=== PATIENT | female | born 1995 | race Caucasian/White ===

== ENCOUNTER 2021-06-12 08:54 | Emergency (ER) | payer SELFPAY ==
[~2021-06-12] VITALS: Ht 160 cm; Wt 121.9 kg
[2021-06-12] MEDS ORDERED: IV RINGERS,LACTATED 1000ML 1,000 ML IV SCH (09:30)
[2021-06-12 09:49] LABS: BASO % 1 % (0-3); EOS # 0.5 x10^3/uL (0.0-0.7); EOS % 7 % (0-3); HEMATOCRIT 38.8 % (36.0-47.0); HEMOGLOBIN 12.9 g/dL (12.0-15.5); LYMPH # 2.2 x10^3/uL (1.0-4.8); LYMPH % 30 % (24-48); MEAN CORPUSCULAR HEMOGLOBIN 28 pg (25-35); MEAN CORPUSCULAR HGB CONC 33 g/dL (31-37); MEAN CORPUSCULAR VOLUME 85 fL (79-100); MONO # 0.4 x10^3/uL (0.0-1.1); MONO % 5 % (0-9); NEUT # 4.1 x10^3/uL (1.8-7.7); NEUT % 57 % (31-73); PLATELET COUNT 248 x10^3/uL (140-400); RED BLOOD COUNT 4.56 x10^6/uL (3.50-5.40); RED CELL DISTRIBUTION WIDTH 14.1 % (11.5-14.5); WHITE BLOOD COUNT 7.2 x10^3/uL (4.0-11.0)
--- NOTE | 2021-06-12 09:57 | RAD ---
INDICATION: Reason: CP / Spl. Instructions: / History: COMPARISON: None. FINDINGS: Single view of chest obtained. Cardiac silhouette is unremarkable given portable technique. Haziness to the left lung with groundglass opacity. IMPRESSION: * Mild groundglass opacity at left lung. Could be secondary to small airway inflammation from pneumo nitis. Asymmetric edema would be less likely in a patient of this age unless they have known history of cardiovascular disease. Electronically signed by: Ming Montaño MD (06/12/2021 9:54 AM) [id number]
[2021-06-12 10:04] LABS: CALCIUM 9.2 mg/dL (8.5-10.1); CREATININE 0.9 mg/dL (0.6-1.0); GFR 75.1; POTASSIUM 4.1 mmol/L (3.5-5.1)
[2021-06-12 10:10] LABS: ALBUMIN 3.6 g/dL (3.4-5.0); MAGNESIUM 1.8 mg/dL (1.8-2.4); TOTAL BILIRUBIN 0.3 mg/dL (0.2-1.0); TOTAL PROTEIN 7.1 g/dL (6.4-8.2)
--- NOTE | 2021-06-12 10:26 | PHYS DOC ---
Past Medical History Past Medical History: Asthma, Diabetes-Type II (JING POTTER) Past Surgical History: No Surgical History (JING POTTER) Smoking Status: Never Smoker Alcohol Use: None (JING POTTER) General Adult EDM: Chief Complaint: CHEST PAIN HPI: HPI: Patient is a 25 year old female who presents with 2-hour history of upper abdomen/lower chest pain radiating around to her back with associated nausea and vomiting. Patient states she felt like it was indigestion, so she took a Tums. She subsequently threw it up. Patient denies substernal chest pressure, diaphoresis, weakness, lightheadedness, hematemesis, diarrhea, constipation. (JING POTTER) Review of Systems: Review of Systems: Constitutional: Denies fever, chills or generalized weakness Eyes: Denies change in visual acuity, visual field deficits or discharge HENT: Denies ear pain, nasal congestion or sore throat Respiratory: Denies cough or shortness of breath Cardiovascular: See HPI GI: See HPI : Denies dysuria or hematuria Musculoskeletal: Denies back pain or joint pain Integument: Denies diaphoresis, rash or other skin lesion Neurologic: Denies headache, focal weakness or sensory changes (JING POTTER) Heart Score: C/O Chest Pain: Yes HEART Score for Chest Pain: HEART Score for Chest Pain Response (Comments) Value History Moderately Suspicious 1 ECG Normal 0 Age < 45 0 Risk Factors 1 or 2 Risk Factors 1 Troponin < Normal Limit 0 Total 2 Risk Factors: Risk Factors: DM, obesity Risk Scores: Score 0 - 3: 2.5% MACE over next 6 weeks - Discharge Home Score 4 - 6: 20.3% MACE over next 6 weeks - Admit for Clinical Observation Score 7 - 10: 72.7% MACE over next 6 weeks - Early Invasive Strategies (JING POTTER) Current Medications: Current Medications Medications (Trade) Dose Ordered Sig/Dhruv Start Time Stop Time Status Last Admin Dose Admin Famotidine (Pepcid Vial) 20 mg 1X ONCE 06/12/21 10:30 06/12/21 10:31 06/12/21 10:09 20 MG Ondansetron HCl (Zofran) 4 mg 1X ONCE 06/12/21 10:30 06/12/21 10:31 06/12/21 10:09 4 MG Ringer's Solution 1,000 ml @ 1,000 mls/hr Q1H 06/12/21 09:30 06/12/21 10:29 06/12/21 09:52 1,000 MLS/HR (JING POTTER) Allergies: Allergies: Allergies Coded Allergies Type Severity Reaction Last Updated Verified oseltamivir Allergy Unknown 06/12/21 Yes Uncoded Allergies Type Severity Reaction Last Updated Verified CLARTIIN Allergy Unknown 06/12/21 (JING POTTER) Physical Exam: PE: Constitutional: Obese, no acute distress, non-toxic appearance. HENT: Normocephalic, atraumatic, bilateral external ears normal, oropharynx moist, nose normal. Eyes: EOMI, conjunctiva normal, no discharge. Neck: Normal range of motion, no stridor. Cardiovascular: Heart regular rate and rhythm. No apparent murmurs, rubs or gallops. Lungs & Thorax: Equal thoracic expansion, no increased work of breathing, breath sounds clear to auscultation in all lung jimenez Abdomen: Bowel sounds normal, soft, mild epigastric tenderness without rebound or guarding, no masses, no pulsatile masses. Skin: Warm, dry, no erythema, no rash. Back: No step-off, no tenderness, no CVA tenderness. Extremities: No cyanosis, no clubbing, ROM intact, no edema. Neurologic: Alert and oriented x4, normal motor function, normal sensory function, no focal deficits noted. (JING POTTER) Current Patient Data: Labs: Laboratory Tests Test 06/12/21 09:40 White Blood Count 7.2 x10^3/uL (4.0-11.0) Red Blood Count 4.56 x10^6/uL (3.50-5.40) Hemoglobin 12.9 g/dL (12.0-15.5) Hematocrit 38.8 % (36.0-47.0) Mean Corpuscular Volume 85 fL (79-100) Mean Corpuscular Hemoglobin 28 pg (25-35) Mean Corpuscular Hemoglobin Concent 33 g/dL (31-37) Red Cell Distribution Width 14.1 % (11.5-14.5) Platelet Count 248 x10^3/uL (140-400) Neutrophils (%) (Auto) 57 % (31-73) Lymphocytes (%) (Auto) 30 % (24-48) Monocytes (%) (Auto) 5 % (0-9) Eosinophils (%) (Auto) 7 % (0-3) H Basophils (%) (Auto) 1 % (0-3) Neutrophils # (Auto) 4.1 x10^3/uL (1.8-7.7) Lymphocytes # (Auto) 2.2 x10^3/uL (1.0-4.8) Monocytes # (Auto) 0.4 x10^3/uL (0.0-1.1) Eosinophils # (Auto) 0.5 x10^3/uL (0.0-0.7) Basophils # (Auto) 0.0 x10^3/uL (0.0-0.2) D-Dimer (Hilda) 0.48 ug/mlFEU (0.00-0.50) Sodium Level 142 mmol/L (136-145) Potassium Level 4.1 mmol/L (3.5-5.1) Chloride Level 104 mmol/L (98-107) Carbon Dioxide Level 27 mmol/L (21-32) Anion Gap 11 (6-14) Blood Urea Nitrogen 15 mg/dL (7-20) Creatinine 0.9 mg/dL (0.6-1.0) Estimated GFR (Cockcroft-Gault) 75.1 BUN/Creatinine Ratio 17 (6-20) Glucose Level 111 mg/dL (70-99) H Calcium Level 9.2 mg/dL (8.5-10.1) Magnesium Level 1.8 mg/dL (1.8-2.4) Total Bilirubin 0.3 mg/dL (0.2-1.0) Aspartate Amino Transferase (AST) 15 U/L (15-37) Alanine Aminotransferase (ALT) 39 U/L (14-59) Alkaline Phosphatase 75 U/L (46-116) Total Protein 7.1 g/dL (6.4-8.2) Albumin 3.6 g/dL (3.4-5.0) Albumin/Globulin Ratio 1.0 (1.0-1.7) Lipase 139 U/L (73-393) Laboratory Tests 06/12/21 09:40 Laboratory Tests 06/12/21 09:40 Vital Signs: Vital Signs Date Time Temp Pulse Resp B/P (MAP) Pulse Ox O2 Delivery O2 Flow Rate FiO2 06/12/21 12:15 91 14 143/81 (101) 98 Room Air 06/12/21 11:45 95 12 122/76 (91) 97 Room Air 06/12/21 11:15 92 12 123/79 (94) 98 Room Air 06/12/21 10:45 94 12 138/87 (104) 97 Room Air 06/12/21 10:15 97.4 94 12 135/89 (104) 97 Room Air 97.4 06/12/21 09:00 98.1 104 18 135/92 (106) 98 98.1 (JING POTTER) EKG: EKG: EKG Interpreted by Dr. Whitaker at 0911: Sinus tachycardia 101 bpm with no ectopic beats. VT 140 ms/QT 332 ms. No STEMI. (JING POTTER) Radiology/Procedures: Radiology/Procedures: PROCEDURE: PORTABLE CHEST 1V INDICATION: Reason: CP / Spl. Instructions: / History: COMPARISON: None. FINDINGS: Single view of chest obtained. Cardiac silhouette is unremarkable given portable technique. Haziness to the left lung with groundglass opacity. IMPRESSION: * Mild groundglass opacity at left lung. Could be secondary to small airway inflammation from pneumonitis. Asymmetric edema would be less likely in a patient of this age unless they have known history of cardiovascular disease. Electronically signed by: Ming Montaño MD (06/12/2021 9:54 AM) [id number] (JING POTTER) Course & Med Decision Making: Course & Med Decision Making Pertinent Labs and Imaging studies reviewed. (See chart for details) Patient is a 25-year-old female who presents with low chest/high abdominal pain radiating to her back. Work-up today will consist of labs that include troponin and D-dimer, EKG, chest x-ray urinalysis, UDS. Patient will be provided with Zofran and Pepcid. Patient states that her nausea and heartburn are resolved with Zofran and Pepcid administration, but she still does complain of pain. She was provided with IV Toradol. On additional reevaluation, patient states she feels "fantabulous." At this time, we have not obtained a urine sample, but I canceled the labs. Patient's symptoms are resolved and are likely due to gastritis, so urinalysis will be necessary. She will be discharged home with prescriptions for Zofran and Pepcid as well as GI follow-up contact information. Return precautions were provided. Patient understands and is agreeable to discharge plan. (JING POTTER) Dragon Disclaimer: Dragon Disclaimer: This electronic medical record was generated, in whole or in part, using a voice recognition dictation system. (JING POTTER) Departure Departure Impression: Primary Impression: Gastritis Qualified Codes: K29.60 - Other gastritis without bleeding Additional Impression: Atypical chest pain Disposition: HOME / SELF CARE / HOMELESS Condition: IMPROVED Referrals: NO PCP (PCP) DIANA SUBRAMANIAN MD Patient Instructions: Diet for Gastroesophageal Reflux Disease, Adult, [id number], Gastritis, Adult, [id number] Additional Instructions: EMERGENCY DEPARTMENT GENERAL DISCHARGE INSTRUCTIONS Thank you for coming to [facility] Emergency Department (ED) today and trusting us with you care. We trust that you had a positive experience in our Emergency Department. If you wish to speak to the department management, you may call the director at . YOUR FOLLOW UP INSTRUCTIONS ARE FOLLOWS: 1. Follow up with your primary care doctor. If you do not have a primary doctor, please ask for a resource list of physicians or clinics that may be able to assist you with follow up care. 2. The emergency provider has interpreted your imaging studies, if any were ord ered. The radiology public transit specialist also reviewed them. If there is a change in the findings, you will be notified in 48 hours when at all possible. 3. If a lab test or culture has been done, your results will be reviewed and you will be notified if you need a change in treatment. 4. Follow instructions verbalized to you and refer to the printouts if needed. ADDITIONAL INSTRUCTIONS AND INFORMATION: 1. Your care today has been supervised by a physician who is specially trained in emergency care. Many problems require more than one evaluation for a complete diagnosis and treatment. We recommend that you schedule your follow up appointment as recommended to ensure complete treatment of you illness or injury. If you are unable to obtain follow up care and continue to have a problem, or if your condition worsens, we recommend that you return to the ED. 2. We are not able to safely determine your condition over the phone nor are we able to give sound medical advice over the phone. For these safety reasons, if you call for medical advice we will ask you to come to the ED for further evaluation. 3. If you have any questions regarding these discharge instructions please call the ED at . SAFETY INFORMATION: In the interest of safety, wellness, and injury prevention; we encourage you to wear your seat belt, if you smoke; quite smoking, and we encourage family to use a protective helmet for bicycling and other sporting events that present an increased risk for head injury. IF YOUR SYMPTOMS WORSEN OR NEW SYMPTOMS DEVELOP, OR YOU HAVE CONCERNS ABOUT YOUR CONDITION; OR IF YOUR CONDITION WORSENS WHILE YOU ARE WAITING FOR YOUR FOLLOW UP APPOINTMENT; EITHER CONTACT YOUR PRIMARY CARE DOCTOR, THE PHYSICIAN WHOSE NAME AND NUMBER YOU WERE GIVEN, OR RETURN TO THE ED IMMEDIATELY. Scripts Famotidine (PEPCID AC) 10 Mg Tablet 10 MG PO HS, #30 TAB Prov: JING POTTER 06/12/21 Ondansetron (ONDANSETRON ODT) 4 Mg Tab.rapdis 1 TAB PO PRN Q6-8HRS, #20 TAB Prov: JING POTTER 06/12/21 Attending Signature I have participated in the care of this patient and I have reviewed and agree with all pertinent clinical information above including history, exam, and recommendations. (MONIQUE WHITAKER DO) JING POTTER Jun 12, 2021 10:26 MONIQUE WHITAKER DO Jun 12, 2021 13:19
[2021-06-12] MEDS ORDERED: ONDANSETRON PF 4 MG/2 ML VIAL. IVP ONE (10:30)
[2021-06-12] MEDS ORDERED: FAMOTIDINE 20 MG/2 ML VIAL IVP ONE (10:30)
[2021-06-12] MEDS ORDERED: KETOROLAC 15 MG/ML VIAL. ONE (10:37)
[2021-06-12] MEDS ORDERED: KETOROLAC 15 MG/ML VIAL. IVP ONE (11:15)
[2021-06-12] MEDS ORDERED: ONDA4TAB12 PO (12:08)
[2021-06-12] MEDS ORDERED: FAMO10TA26 PO (12:08)
[2021-06-12 12:15] VITALS: BP 143/81
--- NOTE | 2021-06-12 15:15 | EKG ---
[facility] [address] [place] [address] Test Date: 2021-06-12 Test Time: 09:02:19 Pat Name: LISBETH BAUTISTA Department: Room: Gender: F Spiritual Counselor: : 1995 Requested By: JING POTTER Order Number: [id number] Reading MD: Keaton Burger Measurements Intervals [place] Rate: 101 P: 26 MT: 148 QRS: 26 QRSD: 74 T: 36 QT: 332 QTc: 431 Interpretive Statements SINUS TACHYCARDIA Electronically Signed On 06-13-2021 16:42:21 CDT by Keaton Burger
== END 2021-06-12 12:25 | disposition home or self-care (01) ==
LOC: ER 08:54
DX: R10.13 Epigastric pain (principal); R11.2 Nausea with vomiting, unspecified; R07.89 Other chest pain; E11.9 Type 2 diabetes mellitus without complications; J45.909 Unspecified asthma, uncomplicated; Z88.8 Allergy status to other drugs, medicaments and biological substances
CPT/HCPCS: 36415; 71045; 80053; 83690; 83735; 84484; 85025; 85379; 93005; 96361; 96374; 96375; 99285; J1885; J2405; J3490; J7120